=== PATIENT | female | born 1970 | race Caucasian/White ===

== ENCOUNTER 2017-05-13 00:08 | Emergency (ER) | payer MEDICAID, OTHER ==
[~2017-05-13] VITALS: Ht 170.2 cm; Wt 113.4 kg
--- NOTE | 2017-05-13 00:28 | NUR ---
AFTER PATIENT WAS DONE BEING TRIAGE PATIENT STATES "I BEEN HAVING CHEST PRESSURE ALSO FOR 2 DAYS."
--- NOTE | 2017-05-13 00:55 | NUR ---
URINE SENT ;LABS DRAWN BY LAB
[2017-05-13 01:09] LABS: *BILIRUBIN,URIN NEGATIVE (NEGATIVE); *BLOOD, URINE Trace-intact (NEGATIVE); *CLARITY,URINE CLEAR (CLEAR); *COLOR,URINE YELLOW (YELLOW); *KETONES,URINE NEGATIVE (NEGATIVE); *PROTEIN,URINE NEGATIVE (NEGATIVE); *URINE HCG, QUAL NEGATIVE (NEGATIVE); LEUKOCYTE ESTERASE ,URINE TRACE (NEGATIVE); NITRITE, URINE NEGATIVE (NEGATIVE); PH,URINE 6.5 (5.0-8.0); UGLUCOSE NEGATIVE (NEGATIVE)
[2017-05-13 01:14] LABS: BACTERIA,URINE FEW /HPF (NONE SEEN); MUCUS,URINE FEW /LPF (0-FEW); SQUAMOUS EPITHELIAL CELL,UR MODERATE /HPF (NONE SEEN)
--- NOTE | 2017-05-13 01:25 | NUR ---
DR GONZALEZ TO [facility] AND REVIEW DISCHG
[2017-05-13] MEDS ORDERED: IBUPROFEN 800 MG TABLET PO ONE (01:30)
--- NOTE | 2017-05-13 01:37 | NUR ---
Patient discharged to home in stable conditon. Written and verbal after care instructions given. Patient verbalizes understanding of instructions.
[2017-05-13 01:41] VITALS: BP 144/82
[2017-05-13] MEDS ORDERED: IBUPROFEN 800 MG TABLET ONE (01:48)
== END 2017-05-13 01:42 | disposition home or self-care (01) ==
LOC: ER 00:10
DX: M54.5 Low back pain (principal); Z90.49 Acquired absence of other specified parts of digestive tract; F17.200 Nicotine dependence, unspecified, uncomplicated
CPT/HCPCS: 81001; 84703; 93005; 99285; A4663